=== PATIENT | male | born 1985 | race Two or more races ===

== ENCOUNTER 2017-06-16 16:29 | Emergency (ER) | payer BC ==
[~2017-06-16] VITALS: Ht 172.7 cm; Wt 104.3 kg
[2017-06-16 16:29] VITALS: BP 141/82
[2017-06-16] MEDS ORDERED: IBUPROFEN 600 MG TABLET PO ONE ×2 (17:30→17:57)
== END 2017-06-16 18:22 | disposition home or self-care (01) ==
LOC: ER 16:32
DX: M77.41 Metatarsalgia, right foot (principal)
CPT/HCPCS: 73630; 99284; A4606; L0172; Z7610

== ENCOUNTER 2018-03-17 16:10 | Emergency (ER) | payer BC ==
[~2018-03-17] VITALS: Ht 170.2 cm; Wt 104.3 kg
--- NOTE | 2018-03-17 16:40 | NUR ---
PT TO ED DT FACIAL NUMBNESS AND DYSARTHRIA X 5 MINUTES PER PATIENT REPORT- HAPPENED 1338. NO SYMPTOM AT THIS TIME. NO CHEST PAIN NO SOB. AFEBRILE. VSS
--- NOTE | 2018-03-17 16:52 | NUR ---
DEEJAY SLADE AT BEDSIDE
[2018-03-17 17:17] LABS: BASOPHILS # (AUTO) 0.1 /CMM (0.0-0.2); BASOPHILS % (AUTO) 1.4 % (0.0-2.0); EOSINOPHILS % (AUTO) 2.5 % (0.0-6.0); HEMATOCRIT 46 % (39-51); HEMOGLOBIN 15.8 g/dL (13.5-17.5); LYMPHOCYTES # (AUTO) 1.9 /CMM (0.8-4.8); LYMPHOCYTES % (AUTO) 27.6 % (20.0-44.0); MEAN CORPUSCULAR HEMOGLOBIN 28 PG (26.0-33.0); MEAN CORPUSCULAR HGB CONC 34 g/dl (31.0-36.0); MEAN CORPUSCULAR VOLUME 81 fL (80-96); MONOCYTES # (AUTO) 0.5 /CMM (0.1-1.30); MONOCYTES % (AUTO) 7.5 % (2.0-12.0); NEUTROPHILS # (AUTO) 4.3 /CMM (1.8-8.9); PLATELET COUNT (AUTO) 215 /CMM (150-450); RDW COEFFICIENT OF VARIATION 16.8 (11.5-15.0); RED BLOOD CELL COUNT(AUTO) 5.67 MIL/uL (4.5-6.0)
[2018-03-17 17:34] LABS: CALCIUM, SERUM 8.9 mg/dL (8.5-10.1)
--- NOTE | 2018-03-17 18:00 | NUR ---
PT IS BACK FROM CT
[2018-03-17] MEDS ORDERED: POTASSIUM CHLORIDE 20 MEQ TAB.PRT.SR PO ONE ×2 (19:00)
[2018-03-17 19:04] VITALS: BP 124/80
--- NOTE | 2018-03-17 19:05 | NUR ---
Patient discharged to home in stable condition. Written and verbal after care instructions given. Patient verbalizes understanding of instruction.
== END 2018-03-17 19:06 | disposition home or self-care (01) ==
LOC: ER 16:12
DX: F41.0 Panic disorder [episodic paroxysmal anxiety] (principal); R20.2 Paresthesia of skin; R53.1 Weakness; D45 Polycythemia vera
CPT/HCPCS: 36415; 70450-TC; 80048-TC; 85025-TC; A4606; Z7610